=== PATIENT | male | born 1950 | race Caucasian/White ===

== ENCOUNTER → 2021-03-12 08:31 | Outpatient (CLI) | payer OTHER, SELFPAY ==
[2021-03-12 10:32] LABS: Alanine Aminotransferase 22 IU/L (<50); Albumin 4.2 g/dL (3.5-5.0); Albumin Globulin Ratio 1.7 (1.0-2.8); Alkaline Phosphatase 64 U/L (38-126); Aspartate Aminotransferase 25 IU/L (17-59); BUN Creatinine Ratio 13.2 (6-22); Bilirubin Total 0.8 mg/dL (0.2-1.3); Blood Urea Nitrogen 16 mg/dL (9-20); Calcium 9.2 mg/dL (8.4-10.2); Carbon Dioxide 26 mmol/L (22-32); Chloride 105 mmol/L (98-107); Cholesterol 121 mg/dL (140-199); Estimated Glomerular Filt Rate 58.9 mL/min (>60); Globulin 2.5 g/dL (1.7-4.1); Glucose 101 mg/dL (80-110); HDL Cholesterol 32 mg/dL (40-60); HEMOLYSIS < 15 (0-50); LDL Cholesterol Calculated 68 mg/dL (<100); Potassium 4.6 mmol/L (3.4-5.1); Sodium 140 mmol/L (137-145); Total Protein 6.7 g/dL (6.3-8.2); Triglycerides 104 mg/dL (35-150)
== END ==
PROVIDERS: PCP Internal Medicine; Referring Provider Internal Medicine Cardiovascular Disease; Visit Provider Internal Medicine Cardiovascular Disease
DX: E78.00 Pure hypercholesterolemia, unspecified (principal); Z12.5 Encounter for screening for malignant neoplasm of prostate
CPT/HCPCS: 36415; 80053; 80061; 84153

== ENCOUNTER → 2022-02-24 13:25 | Outpatient (CLI) | payer OTHER, SELFPAY ==
[2022-02-24 15:26] LABS: BUN Creatinine Ratio 14.2 (6-22); Blood Urea Nitrogen 15 mg/dL (9-20); Calcium 9.2 mg/dL (8.4-10.2); Carbon Dioxide 25 mmol/L (22-32); Chloride 103 mmol/L (98-107); Estimated Glomerular Filt Rate > 60 mL/min (>60); Glucose 97 mg/dL (80-110); HEMOLYSIS < 15 (0-50); Potassium 4.8 mmol/L (3.4-5.1); Sodium 140 mmol/L (137-145)
[2022-02-24 15:51] LABS: Prostate Specific Antigen 2.85 ng/mL (0.10-4.00)
== END ==
PROVIDERS: PCP Internal Medicine; Referring Provider Internal Medicine Cardiovascular Disease; Visit Provider Internal Medicine Cardiovascular Disease
DX: I50.22 Chronic systolic (congestive) heart failure (principal); Z12.5 Encounter for screening for malignant neoplasm of prostate
CPT/HCPCS: 36415; 80048; 84153

== ENCOUNTER → 2022-04-06 12:47 | Outpatient (CLI) | payer OTHER, SELFPAY ==
--- NOTE | 2022-04-06 | DI.RAD.S_ITS ---
PROCEDURE: FL BARIUM SWALLOW INDICATIONS: Dysphagia, unspecified COMPARISON: [facility], CR, XR CHEST 2 VIEWS, 03/16/2019, 11:36. FINDINGS: Function: No substantial esophageal dysmotility for patient age. Gastroesophageal reflux to the level of the lower esophagus was observed with water siphon maneuver. There is normal transit of a calibrated barium tablet through the esophagus into the stomach. Morphology: Air-contrast images demonstrate unremarkable mucosal morphology. No definite high-grade esophageal stricture. Small sliding hiatal hernia intermittently visualized. On pharyngogram images, no evidence of a Zenker's diverticulum is identified. No definite cricopharyngeal bar visualized, however there are prominent cervical osteophytes present near the pharyngoesophageal junction. IMPRESSION: 1. Small sliding hiatal hernia intermittently visualized. 2. Gastroesophageal reflux was observed during the exam. 3. No high-grade esophageal stricture identified. 4. Upper endoscopy may be helpful for further evaluation if clinically indicated. Dictated by: Jaden Cutler M.D. on 04/06/2022 at 13:52 Approved by: Jaden Cutler M.D. on 04/06/2022 at 13:58
== END ==
PROVIDERS: PCP Internal Medicine; Referring Provider Internal Medicine; Visit Provider Internal Medicine
DX: R13.10 Dysphagia, unspecified (principal); K44.9 Diaphragmatic hernia without obstruction or gangrene; K21.9 Gastro-esophageal reflux disease without esophagitis
CPT/HCPCS: 74220

== ENCOUNTER → 2024-11-21 10:14 | Outpatient (CLI) | payer OTHER, SELFPAY ==
--- NOTE | 2024-11-21 10:15 | DI.ECHO.S_ITS ---
[facility] : : [address] 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 Left ventricular global longitudinal strain average is -4.6%. No morocho on top pattern. The left ventricle is mildly dilated. The ejection fraction is estimated to be 35-40%. There has been no significant change in LV since the previous exam. 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 . The right ventricle is mildly dilated. Right ventricular systolic function is mildly reduced. There is a pacemaker lead in the right ventricle. There has been no significant change in the RV size and function since the previous study. Mild MR, mild AI. There is mild to moderate tricuspid regurgitation. Compared to the prior echo exam, there has been no change in TR severity. The right ventricular systolic pressure is estimated to be at least 36 mmHg based on an estimated right atrial pressure of 8 mm Hg. Previously it could not be measured. Procedure: A two-dimensional transthoracic echocardiogram with color flow and Doppler was performed. The study quality was technically adequate. Comparison is made with the echocardiogram of 02/01/2023. The heart rate ranged between 58-80 bpm during the study. The patient has a paced rhythm. Left Ventricle: The left ventricle is mildly dilated. There is mild concentric left ventricular hypertrophy. Proximal septal thickening is noted. There has been no significant change since the previous study. No obvious LV thrombus seen. The ejection fraction is estimated to be 35-40%. Left ventricular global longitudinal strain average is -4.6%. There has been no significant change since the previous exam. 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 Diastolic function could not be accurately assessed due to paced rhythm. Right Ventricle: The right ventricle is mildly dilated. There is a pacemaker lead in the right ventricle. There has been no significant change since the previous study. Right ventricular systolic function is mildly reduced. Atria: The left atrium is severely dilated. The left atrium has remained unchanged in size since the prior echo exam. The right atrium is moderately dilated. There is no Doppler evidence for an interatrial shunt. Mitral Valve: There is mild mitral annular calcification. The mitral valve leaflets appear mildly thickened. There is no mitral valve stenosis. There is mild mitral regurgitation. Aortic Valve: The aortic valve is trileaflet. The aortic valve opens well. There is mild aortic valve sclerosis. There is no aortic valve stenosis. There is mild aortic regurgitation. Tricuspid Valve: The tricuspid valve is normal. There is mild to moderate tricuspid regurgitation. Compared to the prior echo exam, there has been no change in TR severity. The right ventricular systolic pressure is estimated to be at least 36 mmHg based on an estimated right atrial pressure of 8 mm Hg. Pulmonic Valve: The pulmonic valve leaflets are thin and pliable; valve motion is normal. There is trace pulmonic regurgitation. Great Vessels: The aortic root is normal size. The ascending aorta is normal in size. The aortic arch could not be visualized. The IVC is dilated (diameter is greater than 2.1 cm) yet it collapses greater than 50% with a sniff. This suggests a right atrial pressure of 8 mm Hg. Pericardium/ Pleura There is no pericardial effusion. There is no pleural effusion. MMode/2D Measurements & Calculations LVIDd: 5.9 cm LVOT diam: 2.3 cm LVIDs: 4.5 cm Ao root diam: 3.4 cm FS: 23.1 % asc Aorta Diam: 3.6 cm IVSd: 1.2 cm Ao Arch Diam (Prox Trans): 2.7 cm LVPWd: 0.84 cm LV brody. diameter/BSA (cm/m^2): 3.2 LV sys. diameter/BSA (cm/m^2): 2.4 LA A2 area: 34.3 cm2 RA long axis: 5.9 cm LA A4 area: 35.8 cm2 RA area: 23.3 cm2 LA length (vol): 7.4 cm RA vol: 78.6 ml LA vol: 140.8 ml RA : 42.2 ml/m2 LA vol index: 75.6 ml/m2 IVC diam: 2.1 cm RVD1 (basal): 4.5 cm RVD2 (mid): 4.1 cm TAPSE: 1.2 cm Doppler Measurements & Calculations Ao V2 max: 112.7 cm/sec LVOT Max Genaro: 84.0 cm/sec Ao V2 mean: 80.3 cm/sec LV V1 max P.8 mmHg Ao max P.1 mmHg LV V1 VTI: 14.1 cm Ao mean P.9 mmHg GHADA(I,D): 2.8 cm2 Ao V2 VTI: 19.9 cm GHADA(V,D): 3.0 cm2 sev ratio: 0.71 GHADA indexed to BSA (cm^2/m^2): 1.5 AI P1/2t: 1054 msec AI dec slope: 76.8 cm/sec2 MV E max genaro: 47.1 cm/sec TR max genaro: 264.8 cm/sec MV A max genaro: 37.9 cm/sec TR max P.0 mmHg MV E/A: 1.2 PA V2 max: 123.9 cm/sec Med Peak E' Genaro: 7.1 cm/sec PA V2 mean: 74.4 cm/sec E/E' med: 6.6 PA mean P.7 mmHg Lat Peak E' Genaro: 12.0 cm/sec PA pr(Accel): 41.7 mmHg E/E' lat: 3.9 E/e' average: 5.3 MV dec time: 0.19 sec SV(LVOT): 56.6 ml Reading Physician:04:18 PM
== END ==
LOC: ECHO 10:15
PROVIDERS: Referring Provider Internal Medicine Cardiovascular Disease; Visit Provider Internal Medicine Cardiovascular Disease
DX: I50.22 Chronic systolic (congestive) heart failure (principal); I51.7 Cardiomegaly; Z95.0 Presence of cardiac pacemaker; I34.0 Nonrheumatic mitral (valve) insufficiency; I07.1 Rheumatic tricuspid insufficiency
CPT/HCPCS: 93306; 93356